=== PATIENT | female | born 1950 | race Caucasian/White ===

== ENCOUNTER → 2022-07-03 | Outpatient (CLI) | payer MEDICARE ==
[~2022-07-03] MED LIST: ASPI-556 PO; CALC-1125 PO; CHOL100040 PO; LOVA40TA2 PO; METH-386 PO; METO25TA6 PO; UBID100C10 PO
== END | disposition home or self-care (01) ==
LOC: SHCH 08:00
PROVIDERS: ATTEND Internal Medicine Cardiovascular Disease
DX: I35.0 Nonrheumatic aortic (valve) stenosis (principal)
CPT/HCPCS: 93306

== ENCOUNTER → 2023-08-20 | Outpatient (CLI) | payer MEDICARE | END | disposition home or self-care (01) | LOC: SHCH 08:05 | PROVIDERS: ATTEND Internal Medicine Cardiovascular Disease | DX: I35.8 Other nonrheumatic aortic valve disorders (principal); I11.9 Hypertensive heart disease without heart failure | CPT/HCPCS: 93306 ==

== ENCOUNTER → 2023-09-01 | Outpatient (CLI) | payer MEDICARE ==
[2023-09-01 16:34] LABS: ALBUMIN 3.5 g/dL (3.5-5.0); BILIRUBIN,TOTAL 0.4 mg/dL (0.2-1.0); CREATININE 0.9 mg/dL (0.5-1.5); MAGNESIUM 1.9 mg/dL (1.80-2.40); POTASSIUM 4.2 mmol/L (3.5-5.1); T4 (THYROXINE) 10.4 ug/dL (4.7-13.3); THYROID STIMULATING HORMONE 0.09 uIU/mL (0.36-3.74); TOTAL PROTEIN, SERUM 7.5 g/dL (6.0-8.3)
== END | disposition home or self-care (01) ==
LOC: LAB 14:51
PROVIDERS: ATTEND Internal Medicine Cardiovascular Disease
DX: R00.2 Palpitations (principal)
CPT/HCPCS: 36415; 80053; 83735; 83880; 84436; 84443; 84479

== ENCOUNTER 2024-08-30 04:12 | Emergency (ER) | payer MEDICARE ==
[~2024-08-30] VITALS: Ht 167.6 cm; Wt 94.8 kg
--- NOTE | 2024-08-30 04:23 | ERN ---
ED Note History of Present Illness Stated Complaint: C/O HIGH B/P Chief Complaint: Hypertension Time Seen by MD: 04:20 Dictation: This is a 74-year-old female who presented to the emergency room complaining that her blood pressure was running high. Patient stated that she normally does not have any hypertension or antihypertensive medications. She was feeling just unwell in the last 2 days stating that they have a large ranch and she was working extremely hard in cleaning up. She has had a history of anxiety intermittently fearing a sudden and thought that off and on she has been feeling that way for the past week. When she has a panic attack(patient calls it sudden fear of syndrome), she has a transient shortness of breath and she feels AG which usually passes after a short time. Last night her blood pressure before she went to bed was slightly high but as she woke up at around 3:00 a.m. she checked her blood pressure again which was 200 systolic per her report hence she came into the ER for further evaluation. No chest pain, headache, blurred vision, shortness of breath, lower extremity swelling, diaphoresis Temperature 96.5 pulse 78 respirations 20 blood pressure 180/78 with a pulse oximetry of 97%. Chronic medical problems include high cholesterol and hypothyroidism. She had transcutaneous aortic valve replacement in 2020 and subsequently developed pericardial effusion and required pericardiocentesis and window. 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: Coded Allergies: ketorolac (Unverified Allergy, Unknown, 03/28/17) levofloxacin (Unverified Allergy, Unknown, 03/28/17) Home Meds Reported Medications Calcium Carbonate (Calcium) 600 Mg Tablet, 600 MG PO DAILY, TAB 03/28/17 Cholecalciferol (Vitamin D3) (Vitamin D3) 1,000 Unit Capsule, 1000 UNIT PO DAILY, CAP 03/28/17 Ubidecarenone (Coq-10) 100 Mg Capsule, 300 MG PO DAILY, CAP 03/28/17 Aspirin (Aspir 81) 81 Mg Tablet.dr, 81 MG PO DAILY, TAB 03/28/17 Methimazole (Methimazole) 5 Mg Tablet, 2.5 MG PO DAILY, TAB 03/28/17 Metoprolol Tartrate (Metoprolol Tartrate) 25 Mg Tablet, 25 MG PO BID, TAB 03/28/17 Lovastatin (Lovastatin) 40 Mg Tablet, 40 MG PO DAILY, TAB 03/28/17 Past Medical History Past Medical History: High Cholesterol, Hypothyroid, Other Additional Past Medical Hx: Aortic valve replacement through the right chest trans cutaneously, Surgical History: Other (Pericardial effusion status post pericardiocentesis and window), Unknown Family History: Negative Social History: Negative History: Not Applicable RN Note Reviewed/Agreed w/PFSH: Yes Review of System Dictation Constitutional: Negative for fever,chills, and weight loss Eyes: Negative for injury, pain,redness, and discharge ENT: Negative for injury,pain or swelling Cardiovascular: Negative for chest pain, palpitations, and edema Respiratory: Negative for shortness of breath, cough, and wheezing, Abdomen/GI: Negative for abdominal pain, nausea, vomiting, diarrhea, and constipation Back: Negative for injury and pain : Negative for injury, bleeding and discharge MS/Extremity: Negative for injury and deformity Skin: Negative for rash, and discoloration Neuro: Negative for headache, weakness, numbness, tingling, and seizure Psych: Negative for suicide ideation, homicidal ideation, and hallucinations Initial Vital Sign VS Vital Signs Date Time Temp Pulse Resp B/P (MAP) Pulse Ox O2 Delivery O2 Flow Rate FiO2 08/30/24 04:14 96.4 78 20 180/78 99 Room Air 08/30/24 04:29 0 21 Physical Exam Dictation General: awake, alert, NAD Head/Face: Normocephalic, atraumatic Eyes: PERRL, EOMI, vision at baseline ENT: oral cavity clear, TMs clear, no signs of infection Neck: Trachea midline, supple, no nuchal rigidity Cardiovascular: RRR, normal S1/S2, 3/6 MRGs, no JVD Respiratory: CTAB, no respiratory distress, No rales or wheezes Abdomen: Soft, non-tender, non-distended, normal bowel sounds, no guarding or rebound. Skin: Warm, dry, normal turgor, no rash MS/Extremity: Pulses equal, no cyanosis, neurovascular intact, FROM Neuro: COAx4, GCS 15, strength 5/5, CN 2-12 intact, normal cerebellar exam, normal gait, Psych: Normal behavior, mood, and affect normal Extremities-trace edema without any palpable cords, Homans sign is negative Results (Laboratory/Radiology) Laboratory/Radiology Laboratory Tests Test 08/30/24 04:53 White Blood Count 5.3 K/uL (4.8-10.8) Red Blood Count 3.86 MIL/uL (4.00-5.50) L Hemoglobin 11.7 g/dL (12.0-16.0) L Hematocrit 35.8 % (36-48) L Mean Corpuscular Volume 92.7 fL (79-99) Mean Corpuscular Hemoglobin 30.3 pg (27.0-33.0) Mean Corpuscular Hemoglobin Concent 32.7 g/dL (32.0-36.0) Red Cell Distribution Width 13.2 % (11.0-15.5) Platelet Count 125 K/uL (130-400) L Mean Platelet Volume 10.5 fL (7.5-10.5) Immature Granulocyte % (Auto) 0.4 % (0-1) Neutrophils (%) (Auto) 47.6 % (40.0-77.0) Lymphocytes (%) (Auto) 33.3 % (21.0-51.0) Monocytes (%) (Auto) 11.2 % (3.0-13.0) Eosinophils (%) (Auto) 6.2 % (0.0-8.0) Basophils (%) (Auto) 1.3 % (0.0-5.0) Neutrophils # (Auto) 2.5 K/uL (1.8-7.7) Lymphocytes # (Auto) 1.8 K/uL (1.0-4.8) Monocytes # (Auto) 0.6 K/uL (0.1-1.0) Eosinophils # (Auto) 0.33 K/uL (0.00-0.70) Basophils # (Auto) 0.07 K/uL (0.00-0.20) Absolute Immature Granulocyte (auto 0.02 K/uL (0-1) Nucleated Red Blood Cells 0.0 % (0.0-0.19) Sodium Level 143 mmol/L (136-145) Potassium Level 4.4 mmol/L (3.5-5.1) Chloride Level 107 mmol/L (101-111) Carbon Dioxide Level 30 mmol/L (21-32) Blood Urea Nitrogen 23 mg/dL (7-18) H Creatinine 1.0 mg/dL (0.5-1.0) Glomerular Filtration Rate Calc 59 mL/min (>90) Random Glucose 97 mg/dL (70-105) Total Calcium 8.7 mg/dL (8.5-10.1) Total Creatine Kinase 222 U/L (21-232) Troponin I High Sensitivity 43.9 ng/L (4-50) B-Type Natriuretic Peptide 112 pg/mL (0-100) H Labs Reviewed?: Yes EKG Comment: Twelve lead EKG done on 08/30/2024 at 4:16 a.m. showed a heart rate of 62 MO interval 147, QRS 85, QT/QTC 418/424 Impression normal sinus rhythm with a no acute STT wave changes noted. Biphasic P wave in septal leads suggestive of possible left atrial enlargement Interpreted by ER MD Dr. Mina Ultrasound Comment: Conclusion ECHO Left ventricular cavity size is normal. The left ventricle is normal in structure and function. The Ejection Fraction is >55%. The right ventricle is normal size. The left atrium is mildly dilated. The right atrium size is normal. No aortic regurgitation is present. Despite a measured gradient of 39 mm Hg., the aortic valve leaflet excursions speak against hemodynamically significant stenosis. The mitral valve is normal in structure and function. The tricuspid valve is normal in structure and function. The aortic root is normal in size. The IVC is normal in size and collapses >50% with inspiration. The pericardium appears normal. DICTATED BY: HILL CUNNINGHAM II, MD DATE: 08/20/2313 ELECTRONICALLY SIGNED BY: HILL CUNNINGHAM II, MD DATE: 08/25/23 1245 ED Course ED Course Orders Procedure Category Date Status Time 12 Lead Ekg Tracing- EKG 08/30/24 Logged Technical 04:17 Cbc With Differential LAB 08/30/24 Complete 04:40 Basic Metabolic Panel LAB 08/30/24 Complete 04:40 Cardiac Panel LAB 08/30/24 Complete 04:40 B-Type Natriuretic LAB 08/30/24 Complete Peptide 04:40 Chest 1vw RAD 08/30/24 Taken 04:40 Vital Signs Date Time Temp Pulse Resp B/P (MAP) Pulse Ox O2 Delivery O2 Flow Rate FiO2 08/30/24 04:29 98.4 69 19 152/70 99 Room Air* 0 21 08/30/24 04:14 96.4 78 20 180/78 99 Room Air We will perform diagnostic labs, advanced imaging and administer medications according to the patient's complaint. Once the results are available, will review and personally interpreted the labs to rule out any acute life- threatening emergency the trach require immediate intervention and treatment. I will then re-evaluate the patient after treatment and diagnostic exams have return to determine whether the patient requires any further testing, can safely be discharged home or need further admission to hospital for additional treatment and evaluation. Labs reviewed hemoglobin 11.7 BNP 7 showed a BUN and creatinine of 23 and 1.0 with a bicarb of 30 brain natriuretic peptide is 112 chest x-ray is pending 6:40 p.m.-chest x-ray just got done and I reviewed it personally and I do not see any obvious infiltrate or acute pathology. Had a long discussion with the patient and spouse about available information diagnostic test results and recommended that she call Dr. Padgett office and follow up with him for any further evaluation . I also offered to admit her but she declined and stated that she feels much better and reassured that she would like to follow up with the spectrographic analyst Medical Decision Making MDM MDM: Differential diagnosis: Congestive heart failure, worsening aortic valve disease, panic attack Rationale: Tests considered and ordered secondary to shared decision making include: Previous outside records reviewed: Old ER visits. Risk of complication and/or morbidity or mortality of patient management: None Medications-Per medication reconciliation Need for hospitalization: Patient does not meet criteria for hospitalization. Need for emergency major/minor surgery: No There are no social concerns with this patient. Prescription drug management Prescriptions will include symptomatic care Patient's prior external medical records from other ER visits were reviewed by me as indicated. Prior testing and results from previous visits were reviewed. Prior tests were taken into account with medical decision making and resource utilization, independent historian/historians were used to obtain complete medical history. I independently interpreted the test that were performed, results were reviewed by me and considered findings on radiology if ordered. Medical management and examination interpretation discussions were had by me with other qualified healthcare professionals as indicated for the patient's care. Problem List Problem List: (1) Anxiety with limited-symptom attacks (2) Aortic valve replaced DX & DISP Disposition: Discharge Departure Impression: Primary Impression: Aortic valve replaced Additional Impression: Anxiety with limited-symptom attacks Condition: Stable Additional Instructions: Patient and the caregiver have been informed of all the diagnostic tests and the imaging conducted during the today's visit to the emergency room and has verbalized understanding of the results I have personally reviewed and interpreted all diagnostic exams performed here in the ER today as well as the vital signs documented by the nursing staff. The patient is now being discharged to home and should follow up with the primary care physician or the s pecialist as directed by the ER staff. Follow-up with primary care provider in 1 to 2 days. Take medications as directed here in the emergency room. Okay to continue home medications unless otherwise discussed during your visit in the emergency room today. Return to your nearest emergency room if symptoms worsen or if there is no improvement. Call 911 if you need immediate assistance. Take Tylenol or Motrin [id number] as needed and if no contraindications are present. Increase oral hydration. A wound culture or urine culture was ordered here in the emergency room department please follow-up with primary care provider and advise them to get repeat ports from our facility. If you had any Andrey wrap/splints that were applied here, please do not remove them until you see your primary care or specialty. Referrals: SAMMIE BROOKS MD (PCP) LESLYE MINA MD Aug 30, 2024 04:23
[2024-08-30 04:29] VITALS: TEMP 98.5
[2024-08-30 05:04] LABS: BASOPHILS # (AUTO) 0.07 K/uL (0.00-0.20); BASOPHILS % (AUTO) 1.3 % (0.0-5.0); EOSINOPHILS # (AUTO) 0.33 K/uL (0.00-0.70); EOSINOPHILS % (AUTO) 6.2 % (0.0-8.0); HEMATOCRIT 35.8 % (36-48); IMMATURE GRANULOCYTE ABSOLUTE 0.02 K/uL (0-1); LYMPHOCYTES # (AUTO) 1.8 K/uL (1.0-4.8); LYMPHOCYTES % (AUTO) 33.3 % (21.0-51.0); MEAN CORPUSCULAR HEMOGLOBIN 30.3 pg (27.0-33.0); MEAN CORPUSCULAR HGB CONC 32.7 g/dL (32.0-36.0); MEAN CORPUSCULAR VOLUME 92.7 fL (79-99); MONOCYTES # (AUTO) 0.6 K/uL (0.1-1.0); MONOCYTES % (AUTO) 11.2 % (3.0-13.0); NEUTROPHILS # (AUTO) 2.5 K/uL (1.8-7.7); NEUTROPHILS % (AUTO) 47.6 % (40.0-77.0); PLATELET COUNT (AUTO) 125 K/uL (130-400); RED BLOOD CELL COUNT(AUTO) 3.86 MIL/uL (4.00-5.50); RED CELL DISTRIBUTION WIDTH 13.2 % (11.0-15.5); WHITE BLOOD COUNT (AUTO) 5.3 K/uL (4.8-10.8)
[2024-08-30 05:19] LABS: POTASSIUM 4.4 mmol/L (3.5-5.1)
[2024-08-30 05:32] LABS: B-TYPE NATRIURETIC PEPTIDE 112 pg/mL (0-100)
[2024-08-30 07:08] VITALS: BP 128/70; PULSE 65; RESP 19; O2SAT 98
--- NOTE | 2024-08-30 08:49 | EKG ---
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
--- NOTE | 2024-08-30 11:23 | HMCIMG ---
CHEST 1VW HISTORY: Hypertensive urgency COMPARISON: None FINDINGS: A frontal projection of the chest was obtained. No acute pulmonary infiltrates is seen. The heart is normal in size. Prominent interstitial markings are seen. No evidence of aortic calcification is seen. IMPRESSION: 1. No acute pulmonary infiltrate is seen.
== END 2024-08-30 07:08 | disposition home or self-care (01) ==
LOC: EDH 04:12
DX: F41.9 Anxiety disorder, unspecified (principal); E03.9 Hypothyroidism, unspecified; E78.00 Pure hypercholesterolemia, unspecified; Z79.82 Long term (current) use of aspirin; Z88.1 Allergy status to other antibiotic agents; Z95.2 Presence of prosthetic heart valve
CPT/HCPCS: 36415; 71045; 80048; 82550; 83880; 84484; 85025; 93005; 99285

== ENCOUNTER → 2024-10-20 | Outpatient (CLI) | payer MEDICARE ==
--- NOTE | 2024-10-22 14:36 | HMCSR ---
APPROVED REPORT Indications Uncontrolled HTN Renal Artery Doppler Origin (R) 112.3/27.7 cm/secOrigin (L) 93.8/24.6 cm/sec Proximal (R) 118.4/23.1 cm/secProximal (L) 130.7/33.8 cm/sec Mid (R) 106.1/30.8 cm/secMid (L) 115.4/29.2 cm/sec Distal (R) 130.7/32.3 cm/secDistal (L) 132.3/33.8 cm/sec Renal/Aorta Ratio (R) 1.25Renal Aorta Ratio (L) 1.26 Resistive Index (R) 0.69Resistive Index (L) 0.70 Segmental A. (R) 16.7/5.1 cm/secLt. Segmental A. (L) 36.1/10.8 cm/sec Renal Measurements Kidney Size (R) 10.5x6.0x5.2 cmKidney Size (L)10.8x5.8x5.0 cm Aortic Doppler VelocityWaveform Proximal Aorta 104.6 cm/sec Conclusion Based on the renal/aortic ratio there is no evidence of significant stenosis in the right and left re nal arteries. Both kidneys appear to be within normal size parameters (greater than 9.0cm and symmetrical). Conclusion Based on the renal/aortic ratio there is no evidence of significant stenosis in the right and left re nal arteries. Both kidneys appear to be within normal size parameters (greater than 9.0cm and symmetrical).
--- NOTE | 2024-10-22 14:38 | HMCSR ---
APPROVED REPORT Laterality: Bilateral Indications r09.89 Doppler Spectral Velocity Analysis PSV / EDVPSV / EDV ECA (R) 95 / cm/sECA (L) 70 / cm/s dICA (R) 84 / 27 cm/sdICA (L) 112 / 42 cm/s Milady (R) 85 / 31 cm/smICA (L) 107 / 33 cm/s pICA (R) 68 / 15 cm/spICA (L) 78 / 26 cm/s dCCA (R) 66 / 20 cm/sdCCA (L) 70 / 23 cm/s mCCA (R) 94 / 23 cm/smCCA (L) 81 / 30 cm/s pCCA (R) 70 / 15 cm/spCCA (L) 104 / 31 cm/s Vert (R) 59 / cm/sVert (L) 54 / cm/s Subl. (R) 182 / cm/sSubl. (L) 166 / cm/s ICA/CCA 0.90ICA/CCA 1.08 Technologist Impression Minimal plaque noted in the bilateral carotids, without hemodynamic significance. Bilateral vertebral arteries appear antegrade. Conclusion Minimal plaque noted in the bilateral carotids, without hemodynamic significance. Bilateral vertebral arteries appear antegrade. Conclusion Minimal plaque noted in the bilateral carotids, without hemodynamic significance. Bilateral vertebral arteries appear antegrade.
== END | disposition home or self-care (01) ==
LOC: SHCH 08:44
PROVIDERS: ATTEND Internal Medicine Cardiovascular Disease
DX: R09.89 Other specified symptoms and signs involving the circulatory and respiratory systems (principal); I10 Essential (primary) hypertension
CPT/HCPCS: 93880; 93975

== ENCOUNTER 2025-02-03 11:08 | Emergency (ER) | payer MEDICARE ==
[~2025-02-03] VITALS: Ht 167.6 cm; Wt 89.4 kg
[2025-02-03 11:15] VITALS: TEMP 97.9
--- NOTE | 2025-02-03 11:39 | EKG ---
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
[2025-02-03 11:41] LABS: BASOPHILS # (AUTO) 0.06 K/uL (0.00-0.20); EOSINOPHILS # (AUTO) 0.18 K/uL (0.00-0.70); IMMATURE GRANULOCYTE ABSOLUTE 0.02 K/uL (0-1); LYMPHOCYTES # (AUTO) 1.2 K/uL (1.0-4.8); MEAN CORPUSCULAR HEMOGLOBIN 30.7 pg (27.0-33.0); MEAN CORPUSCULAR HGB CONC 33.3 g/dL (32.0-36.0); MEAN CORPUSCULAR VOLUME 92.1 fL (79-99); MONOCYTES # (AUTO) 0.6 K/uL (0.1-1.0); MONOCYTES % (AUTO) 10.3 % (3.0-13.0); NEUTROPHILS % (AUTO) 65.4 % (40.0-77.0); PLATELET COUNT (AUTO) 141 K/uL (130-400); RED BLOOD CELL COUNT(AUTO) 3.91 MIL/uL (4.00-5.50); RED CELL DISTRIBUTION WIDTH 13.4 % (11.0-15.5); WHITE BLOOD COUNT (AUTO) 6.1 K/uL (4.8-10.8)
[2025-02-03 12:02] LABS: APPEARANCE,URINE CLEAR (CLEAR); BILIRUBIN,URINE NEGATIVE (NEGATIVE); COLOR,URINE LIGHT-YELLOW (YELLOW); GLUCOSE, URINE (UA) NEGATIVE (NEGATIVE); KETONES,URINE NEGATIVE (NEGATIVE); LEUKOCYTE ESTERASE ,URINE NEGATIVE Leu/uL (NEGATIVE); NITRATE,URINE NEGATIVE (NEGATIVE); OCCULT BLOOD,URINE NEGATIVE (NEGATIVE); PH,URINE 5.5 (5.0-8.0); PROTEIN,URINE NEGATIVE (NEGATIVE); UROBILINOGEN,URINE 0.2 mg/dL (0.2-1.0)
[2025-02-03 12:04] LABS: ADD UA MICROSCOPIC YES
[2025-02-03 12:05] LABS: MUCUS,URINE RARE LPF (None Seen); RBC,URINE 0-1 /HPF (0-1); SQUAMOUS EPITHELIAL CELL,UR RARE /HPF (0-2)
[2025-02-03 12:07] LABS: B-TYPE NATRIURETIC PEPTIDE 75 pg/mL (0-100)
[2025-02-03 12:27] LABS: CREATININE 1.1 mg/dL (0.5-1.0)
[2025-02-03 12:32] LABS: ALBUMIN 3.8 g/dL (3.5-5.0); BILIRUBIN,DIRECT 0.1 mg/dL (0.0-0.3); BILIRUBIN,TOTAL 0.4 mg/dL (0.2-1.0); TOTAL PROTEIN, SERUM 7.3 g/dL (6.0-8.3)
[2025-02-03 13:37] VITALS: BP 118/48; PULSE 64; RESP 14; O2SAT 96
--- NOTE | 2025-02-03 14:18 | ERN ---
ED Note History of Present Illness Stated Complaint: CHANGES IN BLOOD PRESSURE Chief Complaint: Hypotension Time Seen by MD: 11:13 Dictation: 74-year-old female presenting to the emergency department with episode of hypotension while she was out working in the garden for about 30-45 minutes, patient has a history of hypertension takes her medications. [place] weak currently symptoms have improved and she is normotensive here no chest pain or shortness of breath. Allergies: Coded Allergies: ketorolac (Unverified Allergy, Unknown, 03/28/17) levofloxacin (Unverified Allergy, Unknown, 03/28/17) Home Meds Reported Medications Calcium Carbonate (Calcium) 600 Mg Tablet, 600 MG PO DAILY, TAB 03/28/17 Cholecalciferol (Vitamin D3) (Vitamin D3) 1,000 Unit Capsule, 1000 UNIT PO DAILY, CAP 03/28/17 Ubidecarenone (Coq-10) 100 Mg Capsule, 300 MG PO DAILY, CAP 03/28/17 Aspirin (Aspir 81) 81 Mg Tablet.dr, 81 MG PO DAILY, TAB 03/28/17 Methimazole (Methimazole) 5 Mg Tablet, 2.5 MG PO DAILY, TAB 03/28/17 Metoprolol Tartrate (Metoprolol Tartrate) 25 Mg Tablet, 25 MG PO BID, TAB 03/28/17 Lovastatin (Lovastatin) 40 Mg Tablet, 40 MG PO DAILY, TAB 03/28/17 Past Medical History Past Medical History: High Cholesterol, Hypothyroid, Other Additional Past Medical Hx: Aortic valve replacement through the right chest trans cutaneously, Surgical History: Cholecystectomy, Other, Unknown Surgical History Other: HERNIA REPAIR, AORTIC VALVE REPLACEMENT, THYROIDECTOMY Family History: Negative Social History: Negative History: Not Applicable Review of System Dictation Constitutional: Negative for fever,chills, and weight loss Eyes: Negative for injury, pain,redness, and discharge ENT: Negative for injury,pain or swelling Cardiovascular: Negative for chest pain, palpitations, and edema Respiratory: Negative for shortness of breath, cough, and wheezing, Abdomen/GI: Negative for abdominal pain, nausea, vomiting, diarrhea, and constipation Back: Negative for injury and pain : Negative for injury, bleeding and discharge MS/Extremity: Negative for injury and deformity Skin: Negative for rash, and discoloration Neuro: per HPI Psych: Negative for suicide ideation, homicidal ideation, and hallucinations Initial Vital Sign VS Vital Signs Date Time Temp Pulse Resp B/P (MAP) Pulse Ox O2 Delivery O2 Flow Rate FiO2 02/03/25 11:09 97.9 69 16 125/62 99 Room Air* 0 21 Physical Exam Dictation General: awake, alert, NAD Head/Face: Normocephalic, atraumatic Eyes: PERRL, EOMI, vision at baseline ENT: oral cavity clear, TMs clear, no signs of infection Neck: Trachea midline, supple, no nuchal rigidity Cardiovascular: RRR, normal S1/S2, No MRGs, no JVD Respiratory: CTAB, no respiratory distress, No rales or wheezes Abdomen: Soft, non-tender, non-distended, normal bowel sounds, no guarding or rebound. Skin: Warm, dry, normal turgor, no rash MS/Extremity: Pulses equal, no cyanosis, neurovascular intact, FROM Neuro: COAx4, GCS 15, strength 5/5, CN 2-12 intact, normal cerebellar exam, normal gait, Psych: Normal behavior, mood, and affect normal Results (Laboratory/Radiology) Laboratory/Radiology Laboratory Tests Test 02/03/25 11:30 02/03/25 11:45 White Blood Count 6.1 K/uL (4.8-10.8) Red Blood Count 3.91 MIL/uL (4.00-5.50) L Hemoglobin 12.0 g/dL (12.0-16.0) Hematocrit 36.0 % (36-48) Mean Corpuscular Volume 92.1 fL (79-99) Mean Corpuscular Hemoglobin 30.7 pg (27.0-33.0) Mean Corpuscular Hemoglobin Concent 33.3 g/dL (32.0-36.0) Red Cell Distribution Width 13.4 % (11.0-15.5) Platelet Count 141 K/uL (130-400) Mean Platelet Volume 11.2 fL (7.5-10.5) H Immature Granulocyte % (Auto) 0.3 % (0-1) Neutrophils (%) (Auto) 65.4 % (40.0-77.0) Lymphocytes (%) (Auto) 20.0 % (21.0-51.0) L Monocytes (%) (Auto) 10.3 % (3.0-13.0) Eosinophils (%) (Auto) 3.0 % (0.0-8.0) Basophils (%) (Auto) 1.0 % (0.0-5.0) Neutrophils # (Auto) 4.0 K/uL (1.8-7.7) Lymphocytes # (Auto) 1.2 K/uL (1.0-4.8) Monocytes # (Auto) 0.6 K/uL (0.1-1.0) Eosinophils # (Auto) 0.18 K/uL (0.00-0.70) Basophils # (Auto) 0.06 K/uL (0.00-0.20) Absolute Immature Granulocyte (auto 0.02 K/uL (0-1) Nucleated Red Blood Cells 0.0 % (0.0-0.19) Sodium Level 143 mmol/L (136-145) Potassium Level 4.0 mmol/L (3.5-5.1) Chloride Level 105 mmol/L (101-111) Carbon Dioxide Level 27 mmol/L (21-32) Blood Urea Nitrogen 28 mg/dL (7-18) H Creatinine 1.1 mg/dL (0.5-1.0) H Glomerular Filtration Rate Calc 53 mL/min (>90) Random Glucose 94 mg/dL (70-105) Lactic Acid Level 1.6 mmol/L (0.8-2.5) Total Calcium 8.7 mg/dL (8.5-10.1) Total Bilirubin 0.4 mg/dL (0.2-1.0) Direct Bilirubin 0.1 mg/dL (0.0-0.3) Aspartate Amino Transf (AST/SGOT) 25 U/L (10-37) Alanine Aminotransferase (ALT/SGPT) 18 U/L (12-78) Alkaline Phosphatase 69 U/L (50-136) Total Creatine Kinase 220 U/L (21-232) Troponin I High Sensitivity 8 ng/L (4-50) B-Type Natriuretic Peptide 75 pg/mL (0-100) Total Protein 7.3 g/dL (6.0-8.3) Albumin 3.8 g/dL (3.5-5.0) Urine Color LIGHT-YELLOW (YELLOW) Urine Appearance CLEAR (CLEAR) Urine pH 5.5 (5.0-8.0) Urine Specific [place] 1.016 (1.001-1.031) Urine Protein NEGATIVE mg/dL (NEGATIVE) Urine Glucose (UA) NEGATIVE mg/dL (NEGATIVE) Urine Ketones NEGATIVE mg/dL (NEGATIVE) Urine Occult Blood NEGATIVE (NEGATIVE) Urine Nitrate NEGATIVE (NEGATIVE) Urine Bilirubin NEGATIVE mg/dL (NEGATIVE) Urine Urobilinogen 0.2 mg/dL (0.2-1.0) Urine Leukocyte Esterase NEGATIVE [place]/uL Urine RBC 0-1 /HPF (0-1) Urine WBC 2-5 /HPF (0-1) H Urine Squamous Epithelial Cells RARE /HPF (0-2) Urine Bacteria None /HPF (None Seen) EKG Comment: EKG reviewed and interpreted by me heart rate 62 normal sinus rhythm no STEMI or STEMI equivalent normal intervals ED Course ED Course Orders Procedure Category Date Status Time 12 Lead Ekg Tracing- EKG 02/03/25 Resulted Technical 11:14 Cbc With Differential LAB 02/03/25 Complete 11:14 Basic Metabolic Panel LAB 02/03/25 Complete 11:14 B-Type Natriuretic LAB 02/03/25 Complete Peptide 11:14 Hepatic Function Panel LAB 02/03/25 Complete 11:14 Creatine Kinase, Total LAB 02/03/25 Complete 11:14 Blood Cult ANUJA 02/03/25 In Process 11:14 Lactic Acid LAB 02/03/25 Complete 11:14 Troponin I High LAB 02/03/25 Complete Sensitivity 11:14 Urinalysis Profile LAB 02/03/25 Complete 11:14 Vital Signs Date Time Temp Pulse Resp B/P (MAP) Pulse Ox O2 Delivery O2 Flow Rate FiO2 02/03/25 13:37 64 14 118/48 96 Room Air* 0 21 02/03/25 12:35 69 14 129/48 99 Room Air* 0 21 02/03/25 11:15 97.9 69 16 125/62 98 02/03/25 11:09 97.9 69 16 125/62 99 Room Air* 0 21 Medical Decision Making MDM MDM: Differential diagnosis: Rationale: Tests considered and ordered secondary to shared decision making include: Previous outside records reviewed: Old ER visits. Risk of complication and/or morbidity or mortality of patient management: None Medications-Per medication reconciliation Need for hospitalization: Patient does not meet criteria for hospitalization. Need for emergency major/minor surgery: No There are no social concerns with this patient. Prescription drug management Prescriptions will include symptomatic care Patient's prior external medical records from other ER visits were reviewed by me as indicated. Prior testing and results from previous visits were reviewed. Prior tests were taken into account with medical decision making and resource utilization, independent historian/historians were used to obtain complete medical history. I independently interpreted the test that were performed, results were reviewed by me and considered findings on radiology if ordered. Medical management and examination interpretation discussions were had by me w ith other qualified healthcare professionals as indicated for the patient's care. Brief episode of transient hypotension resolved, stable asymptomatic, negative workup stable for discharge. DX & DISP Disposition: Discharge Departure Impression: Primary Impression: Hypotension Condition: Stable Referrals: SKYLA GREEN MD (PCP) SOLOMON MCQUEEN MD February 03, 2025 14:18
== END 2025-02-03 14:23 | disposition home or self-care (01) ==
LOC: EDH 11:08
DX: I95.9 Hypotension, unspecified (principal); E78.00 Pure hypercholesterolemia, unspecified; E03.9 Hypothyroidism, unspecified; I10 Essential (primary) hypertension; Z88.1 Allergy status to other antibiotic agents; Z88.6 Allergy status to analgesic agent; Z79.82 Long term (current) use of aspirin; Z79.899 Other long term (current) drug therapy; Z98.890 Other specified postprocedural states; Z90.89 Acquired absence of other organs; Z90.49 Acquired absence of other specified parts of digestive tract
CPT/HCPCS: 36415; 80048; 80076; 81001; 82550; 83605; 83880; 84484; 85025; 87040; 93005; 99284